=== PATIENT | male | born 1940 | race Two or more races ===

== ENCOUNTER → 2016-11-24 | Day surgery (SDC) | payer MEDICARE ==
[~2016-11-24] VITALS: Ht 175.3 cm; Wt 102.3 kg
[~2016-11-24] MED LIST: ASPI-496 PO; ATOR80TA75 PO; CEFAZOLIN 1,000 MG ONE; DEXAMETHASONE 4 MG/ML, 1ML ONE; FENTANYL PF 250 MCG/5ML ONE; KETOROLAC 30 MG/1 ML ONE; LACTATED RINGERS 1,000 ML IV SCH; LANS30CA PO; METO25TA91 PO; MIDAZOLAM 1 MG/ML, 2ML ONE; MULT-412 PO; OMEG300C PO; ONDANSETRON 2MG/ML, 2ML ONE; OXYcodone 5 MG/5 ML ORAL.SOL UDC ONE; OXYcodone 5 MG/5 ML ORAL.SOL UDC PO PRN; PHENYLEPHRINE 10 MG/ML ONE; PROPOFOL 10 MG/ML, 20ML ONE; ROCURONIUM 10 MG/ML ONE; SUCCINYLCHOLINE 20 MG/ML, 10ML ONE; TAMS-11 PO; TERA10CA3 PO
== END | disposition home or self-care (01) ==
LOC: OR 07:03
PROVIDERS: ATTEND Urology
DX: N32.0 Bladder-neck obstruction (principal); N32.89 Other specified disorders of bladder; I10 Essential (primary) hypertension; E11.9 Type 2 diabetes mellitus without complications; K21.9 Gastro-esophageal reflux disease without esophagitis; I25.10 Atherosclerotic heart disease of native coronary artery without angina pectoris; Z95.5 Presence of coronary angioplasty implant and graft; Z87.442 Personal history of urinary calculi
CPT/HCPCS: 52500; J0330; J0690; J1100; J1885; J2250; J2370; J2405; J2704; J3010